=== PATIENT | male | born 1975 | race Caucasian/White ===

== ENCOUNTER 2022-10-18 18:18 | Emergency (ER) | payer MEDICAID ==
[~2022-10-18] VITALS: Ht 177.8 cm; Wt 81.6 kg
--- NOTE | 2022-10-18 18:27 | NUR ---
Inez SHAFERn to assist with care while pt on [facility].
--- NOTE | 2022-10-18 18:27 | NUR ---
ER at bedside examining patient.
[2022-10-18] MEDS ORDERED: NACL 0.9% 2,000 ML IV ONE ×2 (18:30→20:45)
[2022-10-18] MEDS ORDERED: LORazepam 2 MG/ML VIAL IVP ONE (18:30)
[2022-10-18 19:07] LABS: BASOPHILS % (AUTO) 0.2 % (0.0-2.0); EOSINOPHILS % (AUTO) 0.1 % (0.0-4.0); HEMOGLOBIN 17.2 g/dL (14.0-18.0); LYMPHOCYTES # (AUTO) 3.6 K/uL (1.0-5.5); MEAN CORPUSCULAR HEMOGLOBIN 32 pg (27-31); MEAN CORPUSCULAR HGB CONC 35 % (32-36); MEAN CORPUSCULAR VOLUME 90 fL (79.0-98.0); MONOCYTES # (AUTO) 0.7 K/uL (0.0-1.0); MONOCYTES % (AUTO) 4.9 % (1.7-9.3); NEUTROPHILS # (AUTO) 10.5 K/uL (1.8-7.7); NEUTROPHILS % (AUTO) 70.8 % (40.0-70.0); PLATELET COUNT (AUTO) 198 K/uL (130-430); RED BLOOD CELL COUNT(AUTO) 5.42 MIL/uL (4.2-6.2); RED CELL DISTRIBUTION WIDTH 12.7 % (9.0-15.0); WHITE BLOOD COUNT (AUTO) 14.9 K/uL (4.8-10.8)
--- NOTE | 2022-10-18 19:12 | NUR ---
Pt on ambulance [facility] started IV 22 gauge to right hand. started IVF Normal saline per MD Craft order. Completed EKG and submitted to MD Craft.
[2022-10-18 19:19] LABS: ANION GAP 13 (5-15); CALCIUM 8.8 mg/dL (8.4-11.0); CHLORIDE 97 mmol/L (98-107); CREATININE 1.14 mg/dL (0.55-1.30); GLUCOSE 122 mg/dL (70-99); UREA NITROGEN, BLOOD 20 mg/dL (8-21)
[2022-10-18 19:28] LABS: ALANINE AMINOTRANSFERASE 68 U/L (12-78); ALBUMIN 4.7 g/dL (3.4-4.8); ALCOHOL, BLOOD 280 mg/dL (<10); AMYLASE 31 U/L (0-100); ASPARTATE AMINOTRANSFERASE 74 U/L (10-37); LIPASE 111 U/L (73-393); TOTAL BILIRUBIN 2.3 mg/dL (0.0-1.0)
[2022-10-18 19:36] LABS: PROTHROMBIN TIME 10.4 SECS (9.5-12.5)
[2022-10-18 19:43] LABS: GFR AFRICAN AMERICAN 89 mL/min (>90)
[2022-10-18 19:45] VITALS: BP_SYST 148
[2022-10-18 19:51] LABS: CKMB RELATIVE INDEX 0.4 (0.0-2.9); CREATINE KINASE MB 7.4 ng/mL (0-3.6)
[2022-10-18 20:11] LABS: ACETONE, SERUM NEGATIVE (NEGATIVE)
[2022-10-18] MEDS ORDERED: LORA-259 PO ×2 (20:36)
[2022-10-18] MEDS ORDERED: SODIUM BICARBONATE 8.4% JECT 50 MEQ/50 ML SYRINGE IVP ONE (20:45)
[2022-10-18 22:14] VITALS: BP_SYST 129
== END 2022-10-18 22:14 | disposition home or self-care (01) ==
LOC: SED 18:18
DX: M62.82 Rhabdomyolysis (principal); F10.10 Alcohol abuse, uncomplicated; R00.2 Palpitations; R11.0 Nausea; Z79.899 Other long term (current) drug therapy; Y90.6 Blood alcohol level of 120-199 mg/100 ml
CPT/HCPCS: 99283; 96360; 96361; 80053; 82009; 82150; 82550; 82553; 83690; 85025; 85610; 85730; 84484; 36415; 83605; G0482; J7030

== ENCOUNTER 2022-10-18 22:59 | Inpatient (IN) | payer MEDICAID ==
[~2022-10-18] VITALS: Ht 177.8 cm; Wt 89.8 kg
[~2022-10-18 22:59] MED LIST: LORA-259 PO
[2022-10-18 23:14] VITALS: BP_SYST 140
[2022-10-18] MEDS ORDERED: LORazepam 2 MG/ML VIAL IVP ONE (23:45)
[2022-10-18] MEDS ORDERED: NACL 0.9% 2,000 ML IV ONE (23:45)
[2022-10-18] MEDS ORDERED: ONDANSETRON HCL 4 MG/2 ML VIAL IVP ONE (23:45)
[2022-10-18 23:51] LABS: BASOPHILS % (AUTO) 0.2 % (0.0-2.0); EOSINOPHILS % (AUTO) 0.1 % (0.0-4.0); HEMATOCRIT 43.8 % (36-54); HEMOGLOBIN 15.4 g/dL (14.0-18.0); LYMPHOCYTES # (AUTO) 2.9 K/uL (1.0-5.5); LYMPHOCYTES % (AUTO) 14.2 % (20.5-51.5); MEAN CORPUSCULAR HEMOGLOBIN 32 pg (27-31); MEAN CORPUSCULAR HGB CONC 35 % (32-36); MEAN CORPUSCULAR VOLUME 90 fL (79.0-98.0); MONOCYTES # (AUTO) 0.9 K/uL (0.0-1.0); MONOCYTES % (AUTO) 4.5 % (1.7-9.3); NEUTROPHILS # (AUTO) 16.5 K/uL (1.8-7.7); PLATELET COUNT (AUTO) 166 K/uL (130-430); RED BLOOD CELL COUNT(AUTO) 4.86 MIL/uL (4.2-6.2); RED CELL DISTRIBUTION WIDTH 12.7 % (9.0-15.0); WHITE BLOOD COUNT (AUTO) 20.4 K/uL (4.8-10.8)
[2022-10-19 00:07] LABS: CALCIUM 8.1 mg/dL (8.4-11.0); CREATININE 0.88 mg/dL (0.55-1.30)
[2022-10-19 00:23] LABS: ALBUMIN 4.1 g/dL (3.4-4.8); TOTAL BILIRUBIN 1.9 mg/dL (0.0-1.0)
[2022-10-19] MEDS ORDERED: PIPERACILLIN/TAZO 3.375 GM in NS 50 ML IV ONE (00:30)
[2022-10-19 00:47] LABS: CKMB RELATIVE INDEX 0.4 (0.0-2.9); CREATINE KINASE MB 9.9 ng/mL (0-3.6)
[2022-10-19] MEDS ORDERED: PIPERACILLIN/TAZOBACTAM 3.375 GM/VIAL (ZOSYN) IV ONE (00:49)
[2022-10-19] MEDS: NACL 0.9% 1,000 ML IV SCH ×2 (01:23→12:18)
[2022-10-19] MEDS: LORazepam 2 MG/ML VIAL IVP PRN ×2 (02:19→21:11)
[2022-10-19] MEDS ORDERED: NS 500 ML IV ONE (03:00)
[2022-10-19 04:14] LABS: BILIRUBIN,URINE NEGATIVE (NEGATIVE); BLOOD, URINE 1+ (NEGATIVE); COLOR,URINE YELLOW (YELLOW); GLUCOSE,URINE NEGATIVE (NEGATIVE); KETONES,URINE TRACE (NEGATIVE); LEUKOCYTE ESTERASE ,URINE NEGATIVE (NEGATIVE); NITRITE, URINE NEGATIVE (NEGATIVE); PROTEIN URINE NEGATIVE (NEGATIVE); UROBILINOGEN,URINE 0.2 (0.2-1.0)
[2022-10-19 04:24] LABS: CLARITY/URINE HAZY (CLEAR)
[2022-10-19 04:25] LABS: BACTERIA,URINE None Seen /HPF (None Seen); WBC,URINE 0-3 /HPF (0-3)
[2022-10-19 04:33] LABS: BARBITURATE, URINE NEGATIVE (NEG <=200); BENZODIAZEPINE, URINE POSITIVE (NEG <=150); CANNABINOID, URINE NEGATIVE (NEG <=50); COCAINE, URINE NEGATIVE (NEG <=150); METHAMPHETAMINES SCREEN,URINE NEGATIVE (NEG <=500); OPIATE, URINE NEGATIVE (NEG <=100); PHENCYCLIDINE SCREEN,URINE NEGATIVE (NEG <=25); UR TRICYCLIC ANTIDEPRESSANTS NEGATIVE (NEG <=300); URINE AMPHETAMINE NEGATIVE (NEG <=500); URINE METHADONE NEGATIVE (NEG <=200); URINE OXYCODONE SCREEN NEGATIVE (NEG <=100); URINE PROPOXYPHENE SCREEN NEGATIVE (NEG <=300)
[2022-10-19] MEDS ORDERED: ONDANSETRON HCL 4 MG/2 ML VIAL IVP PRN (06:45)
[2022-10-19] MEDS ORDERED: ACETAMINOPHEN 325 MG TABLET PO PRN ×2 (06:45→07:15)
[2022-10-19] MEDS ORDERED: MAGNESIUM SULFATE 50 ML IV PRN (06:45)
[2022-10-19] MEDS ORDERED: MORPHINE 2 MG/ML INJ. SYRINGE IVP PRN ×2 (06:45)
[2022-10-19] MEDS ORDERED: POTASSIUM CHLORIDE 20 MEQ TAB.PRT.SR PO PRN (06:45)
[2022-10-19] MEDS ORDERED: MUPIROCIN 2% TOPICAL OINTMENT 22 GM NS PRN (06:45)
[2022-10-19] MEDS ORDERED: DOCUSATE SODIUM 100 MG CAPSULE PO PRN (06:45)
[2022-10-19] MEDS ORDERED: NALOXONE HCL 0.4 MG/ML AMP (NARCAN) IVP PRN ×2 (06:45)
[2022-10-19] MEDS: FOLIC ACID 1 MG TABLET PO SCH (10:04)
[2022-10-19] MEDS: chlordiazePOXIDE HCL 10 MG CAPSULE PO SCH ×3 (10:04→21:20)
[2022-10-19] MEDS: THIAMINE HCL 100 MG TABLET PO SCH (10:05)
[2022-10-19] MEDS: cefTRIAXone 1 GM in D5W 50 ML IV SCH (10:06)
[2022-10-19 11:45] VITALS: BP_SYST 141
[2022-10-19 15:44] VITALS: BP_SYST 151
[2022-10-19 21:00] VITALS: BP_SYST 153
[2022-10-20 01:16] VITALS: BP_SYST 161
[2022-10-20] MEDS: NACL 0.9% 1,000 ML IV SCH ×3 (04:17→16:37)
[2022-10-20] MEDS: LORazepam 2 MG/ML VIAL IVP PRN ×2 (06:13→16:38)
[2022-10-20 07:02] LABS: BASOPHILS % (AUTO) 0.4 % (0.0-2.0); EOSINOPHILS # (AUTO) 0.1 K/uL (0.0-0.4); EOSINOPHILS % (AUTO) 0.6 % (0.0-4.0); HEMATOCRIT 41.6 % (36-54); HEMOGLOBIN 14.8 g/dL (14.0-18.0); LYMPHOCYTES # (AUTO) 1.7 K/uL (1.0-5.5); LYMPHOCYTES % (AUTO) 20.3 % (20.5-51.5); MEAN CORPUSCULAR HEMOGLOBIN 32 pg (27-31); MEAN CORPUSCULAR HGB CONC 36 % (32-36); MEAN CORPUSCULAR VOLUME 91 fL (79.0-98.0); MONOCYTES # (AUTO) 0.5 K/uL (0.0-1.0); MONOCYTES % (AUTO) 5.7 % (1.7-9.3); NEUTROPHILS # (AUTO) 6.3 K/uL (1.8-7.7); PLATELET COUNT (AUTO) 92 K/uL (130-430); RED BLOOD CELL COUNT(AUTO) 4.56 MIL/uL (4.2-6.2); RED CELL DISTRIBUTION WIDTH 12.6 % (9.0-15.0); WHITE BLOOD COUNT (AUTO) 8.6 K/uL (4.8-10.8)
[2022-10-20 08:27] VITALS: BP_SYST 158
[2022-10-20 08:51] LABS: CALCIUM 8.2 mg/dL (8.4-11.0); CREATININE 0.59 mg/dL (0.55-1.30)
[2022-10-20] MEDS: THIAMINE HCL 100 MG TABLET PO SCH (08:58)
[2022-10-20] MEDS: FOLIC ACID 1 MG TABLET PO SCH (08:58)
[2022-10-20] MEDS: chlordiazePOXIDE HCL 10 MG CAPSULE PO SCH ×3 (08:58→21:51)
[2022-10-20] MEDS: cefTRIAXone 1 GM in D5W 50 ML IV SCH (08:59)
[2022-10-20 10:20] LABS: CKMB RELATIVE INDEX 0.3 (0.0-2.9); CREATINE KINASE MB 2.4 ng/mL (0-3.6)
[2022-10-20 12:24] VITALS: BP_SYST 143
[2022-10-20 17:16] VITALS: BP_SYST 135
[2022-10-20 20:30] VITALS: BP_SYST 142
[2022-10-21 00:40] VITALS: BP_SYST 142
[2022-10-21] MEDS: NACL 0.9% 1,000 ML IV SCH (01:41)
[2022-10-21] MEDS ORDERED: FOLI-43 PO (07:48)
[2022-10-21] MEDS ORDERED: THIA250T3 PO (07:49)
[2022-10-21] MEDS ORDERED: LORA-258 PO (07:50)
[2022-10-21 08:03] VITALS: BP_SYST 148
[2022-10-21 08:20] LABS: CALCIUM 8.9 mg/dL (8.4-11.0); CREATININE 0.65 mg/dL (0.55-1.30)
[2022-10-21] MEDS: THIAMINE HCL 100 MG TABLET PO SCH (08:26)
[2022-10-21] MEDS: FOLIC ACID 1 MG TABLET PO SCH (08:26)
[2022-10-21] MEDS: chlordiazePOXIDE HCL 10 MG CAPSULE PO SCH (08:26)
[2022-10-21 08:49] VITALS: BP_SYST 148
[2022-10-21 09:34] LABS: CKMB RELATIVE INDEX 0.5 (0.0-2.9); CREATINE KINASE MB 1.8 ng/mL (0-3.6)
[2022-10-21 09:53] LABS: BASOPHILS % (AUTO) 0.4 % (0.0-2.0); EOSINOPHILS # (AUTO) 0.1 K/uL (0.0-0.4); EOSINOPHILS % (AUTO) 1.1 % (0.0-4.0); HEMATOCRIT 42.1 % (36-54); LYMPHOCYTES # (AUTO) 1.5 K/uL (1.0-5.5); LYMPHOCYTES % (AUTO) 16.9 % (20.5-51.5); MEAN CORPUSCULAR HEMOGLOBIN 32 pg (27-31); MEAN CORPUSCULAR HGB CONC 36 % (32-36); MEAN CORPUSCULAR VOLUME 90 fL (79.0-98.0); MONOCYTES # (AUTO) 0.4 K/uL (0.0-1.0); NEUTROPHILS # (AUTO) 6.6 K/uL (1.8-7.7); NEUTROPHILS % (AUTO) 76.6 % (40.0-70.0); PLATELET COUNT (AUTO) 112 K/uL (130-430); RED BLOOD CELL COUNT(AUTO) 4.67 MIL/uL (4.2-6.2); RED CELL DISTRIBUTION WIDTH 12.7 % (9.0-15.0); WHITE BLOOD COUNT (AUTO) 8.7 K/uL (4.8-10.8)
== END 2022-10-21 09:45 | disposition home or self-care (01) | DRG 351 ==
LOC: SED 22:59 → STU 10-19 00:38
PROVIDERS: ADMIT Family Medicine; ATTEND Family Medicine
DX: M62.82 Rhabdomyolysis (principal); R65.11 Systemic inflammatory response syndrome (SIRS) of non-infectious origin with acute organ dysfunction; E87.20 Acidosis, unspecified; E86.0 Dehydration; E83.51 Hypocalcemia; F10.139 Alcohol abuse with withdrawal, unspecified; Y90.9 Presence of alcohol in blood, level not specified; Z20.822 Contact with and (suspected) exposure to COVID-19
CPT/HCPCS: 36415; 76376; 80048; 80053; 80307; 81000; 82550; 82553; 83605; 83690; 83735; 85025; 87040; 96374; 96375; 99283; G0378; G0482; J0696; J2060; J2405; J2543; J7060